=== PATIENT | female | born 1985 | race Caucasian/White ===

== ENCOUNTER 2020-07-11 17:25 | Emergency (ER) | payer OTHER, SELFPAY ==
[2020-07-11 17:28] VITALS: BP 139/86; PULSE 81; RESP 18; O2SAT 98; BMI 30.9
[2020-07-11] MEDS: ONDANSETRON 4 MG/2 ML INJ IV (17:57)
[2020-07-11 18:04] LABS: Add Manual Diff / Slide Review NO; Basophils Absolute Auto 100 /uL (0-100); Basophils Percent Auto 0.5 % (0-2); Eosinophils Absolute Auto 200 /uL (0-450); Eosinophils Percent Auto 1.4 % (2-4); Hematocrit 43.1 % (36-46); Hemoglobin 14.1 g/dL (12.0-16.0); Lymphocytes Absolute Auto 2100 /uL (1100-4500); Lymphocytes Percent Auto 14.9 % (25-40); Mean Corpuscular HGB Conc 32.8 % (30-36); Mean Corpuscular Hemoglobin 26.7 PG (26-34); Mean Corpuscular Volume 81.5 fL (80-100); Monocytes Absolute Auto 500 /uL (0-900); Monocytes Percent Auto 3.7 % (3-14); Neutrophils Absolute Auto 11100 /uL (1500-7000); Neutrophils Percent Auto 79.5 % (50-75); Platelet Count 314 X10^3/uL (150-400); Red Blood Cell Count 5.29 X10^6/uL (4.0-5.2); Red Cell Distribution Width 13.7 % (11.6-14.8); White Blood Cell Count 13.9 X10^3/uL (4.5-11.0)
--- NOTE | 2020-07-11 18:04 | ED_ITS ---
HPI - Abdominal Pain General Chief Complaint: Abdominal Pain Stated Complaint: R side pain,nausea,runs Time Seen by Provider: 07/11/20 18:00 Source: patient Mode of arrival: Ambulatory Limitations: no limitations History of Present Illness HPI narrative: 34-year-old male nonsmoker with noncontributory medical history presents at the request of her primary care provider for evaluation of gradually worsening right-sided abdominal pain. She has had nausea, vomiting and some loose stools. She states her pain is worse with motion as well as eating. She has had a poor appetite and has not had much over the course of the day. She denies any history of the same. She has had no runny nose, sore throat or cough and denies exposure to persons known to have COVID. She denies any abdominal surgeries. MD complaint: abdominal pain Onset (ago): day(s) Pain Consistency: constant Location: RUQ Severity: moderate Quality: cramping and aching Radiation: none Relieving factors: rest Exacerbating factors: eating Associated symptoms: nausea, vomiting and diarrhea Related Data Previous Rx's Medication Instructions Recorded hydrocodone-acetaminophen 1 tab PO Q4-6H PRN #10 tab 07/11/20 ondansetron 4 mg PO TID-QID PRN #10 tab 07/11/20 Allergies Allergy/AdvReac Type Severity Reaction Status Date / Time doxycycline Allergy Verified 07/11/20 17:28 sumatriptan [From Imitrex] Allergy Verified 07/11/20 17:28 Review of Systems Constitutional Constitutional: Denies chills, Denies fatigue, Denies fever(s), Denies frequent falls, Denies lethargy and Denies weakness Eyes Eyes: Denies change in vision, Denies eye discharge, Denies irritation and Denies loss of vision ENT Ears, Nose, Mouth, and Throat: Denies change in voice, Denies dizziness, Denies neck pain, Denies sore throat and Denies throat swelling Cardiovascular Cardiovascular: Denies chest pain, Denies irregular heart rhythm, Denies lightheadedness, Denies palpitations, Denies dyspnea, Denies dyspnea on exertion and Denies orthopnea Respiratory Respiratory: Denies cough, Denies dyspnea, Denies dyspnea on exertion and Denies wheezing Gastrointestinal Gastrointestinal: Reports abdominal pain, Denies change in bowel habits, Reports diarrhea, Reports nausea and Reports vomiting Musculoskeletal Musculoskeletal: Denies neck pain and Denies numbness Integumentary/Breasts Skin/Breast: Denies pruritus, Denies erythema, Denies rash and Denies wounds Neurologic Neurologic: Denies behavioral changes, Denies confusion, Denies dizziness, Denies frequent falls, Denies loss of vision, Denies numbness and Denies weakness Psychiatric Psychiatric: Denies anxiety, Denies behavioral changes, Denies confusion, Denies depression, Denies homicidal ideation and Denies suicidal ideation Endocrine Endocrine: Denies fatigue, Denies flushing and Denies palpitations Hematologic/Lymphatic Hematologic/Lymphatic: Denies easy bruising Allergic/Immunologic Allergic/Immunologic: Denies urticaria, Denies throat swelling and Denies wheezing Patient History Social History Smoking Status: Never smoker Smoking Status: Never smoker Substance Use Type: does not use Exam Narrative Exam Narrative: GENERAL: [34] year old patient appears stated age. Well- nourished, well-developed patient, in mild distress. Rubbing her right-sided abdomen HEAD: Atraumatic. Normocephalic. EYES: Pupils equal round and reactive. Extraocular motions intact. No scleral icterus. No injection or drainage. ENT: Nose without bleeding, purulent drainage. Throat without erythema, tonsillar hypertrophy or exudate. Airway patent. NECK: Trachea midline. Non tender CARDIOVASCULAR: Regular rate and rhythm without murmurs, gallops, or rubs. RESPIRATORY: Clear to auscultation. Breath sounds equal bilaterally. No wheezes, rales, or rhonchi. GASTROINTESTINAL: Abdomen soft, tender in the right upper quadrant, nondistended. No peritoneal signs. Bowel sounds present in all 4 quadrants EXTREMITIES: No edema or joint tenderness. BACK: Nontender without deformity or crepitance. No flank tenderness. NEURO: AOx3. SKIN: No rash or erythema of visible areas Initial Vital Signs Initial Vital Signs: Vital Signs Pulse Rate 81 07/11/20 17:28 Respiratory Rate 18 07/11/20 17:28 Blood Pressure 139/86 07/11/20 17:28 Pulse Oximetry 98 07/11/20 17:28 Course Orders Ordered: ED Orders 07/11/20 21:28 US abdomen limited Stat 07/11/20 22:44 CT abdomen pelvis w con Stat Discontinued Medications Hydrocodone Bitart/Acetaminophen (Hydrocodone/Acet 5/325 Prepack) 1 bottle MISC SEEINSTR ONE Stop: 07/11/20 23:41 Last Admin: 07/11/20 23:59 Dose: 1 bottle Documented by: KALIN Lactated Ringer's (Lactated Ringers) 1,000 mls @ 1,000 mls/hr IV BOLUS ONE Stop: 07/11/20 22:26 Last Infusion: 07/11/20 23:14 Dose: 0 mls/hr Documented by: Admin: 07/11/20 21:44 Dose: 1,000 mls/hr Documented by: KALIN Ondansetron HCl (Ondansetron 4 Mg/2 Ml Inj) 4 mg IV NOW ONE Stop: 07/11/20 17:35 Last Admin: 07/11/20 17:57 Dose: 4 mg Documented by: KALIN Ondansetron HCl (Ondansetron 4 Mg Odt Prepack) 1 bottle MISC SEEINSTR ONE Stop: 07/11/20 23:41 Last Admin: 07/11/20 23:59 Dose: 1 bottle Documented by: KALIN Vital Signs Vital signs: Vital Signs - 8 hr 07/12/20 00:02 Pulse Rate 68 Respiratory Rate 18 Blood Pressure 160/84 H Pulse Oximetry 98 MDM - Abdominal Pain Lab Data Result diagrams: 07/11/20 17:55 07/11/20 17:55 Labs: Lab Results 07/11/20 07/11/20 07/11/20 Range/Units 17:55 17:55 17:55 WBC 13.9 H (4.5-11.0) X10^3/uL RBC 5.29 H (4.0-5.2) X10^6/uL Hgb 14.1 (12.0-16.0) g/dL Hct 43.1 (36-46) % MCV 81.5 (80-100) fL MCH 26.7 (26-34) PG MCHC 32.8 (30-36) % RDW 13.7 (11.6-14.8) % Plt Count 314 (150-400) X10^3/uL Neut % (Auto) 79.5 H (50-75) % Lymph % (Auto) 14.9 L (25-40) % [place] % (Auto) 3.7 (3-14) % Eos % (Auto) 1.4 L (2-4) % Baso % (Auto) 0.5 (0-2) % Neut # (Auto) 52396 H (4929-4060) /uL Lymph # (Auto) 2100 (2147-9128) /uL [place] # (Auto) 500 (0-900) /uL Eos # (Auto) 200 (0-450) /uL Baso # (Auto) 100 (0-100) /uL PT 13.7 H (10.1-12.7) SECONDS INR 1.2 (0.9-1.3) APTT 34 (26.4-36.2) SECONDS Sodium 139 (137-145) mmol/L Potassium 4.2 (3.4-5.1) mmol/L Chloride 106 (98-107) mmol/L Carbon Dioxide 27 (22-32) mmol/L BUN 16 (7-17) mg/dL Creatinine 0.72 (0.52-1.04) mg/dL Estimated GFR > 60.0 (>60) mL/min BUN/Creatinine Ratio 22.2 H (6-22) Glucose 118 H (70-100) mg/dL Calcium 9.6 (8.4-10.2) mg/dL Total Bilirubin 1.0 (0.2-1.3) mg/dL AST 25 (14-36) IU/L ALT 23 (<35) IU/L Alkaline Phosphatase 77 (38-126) U/L Total Protein 8.7 H (6.3-8.2) g/dL Albumin 4.8 (3.5-5.0) g/dL Globulin 3.9 (1.7-4.1) g/dL Albumin/Globulin Ratio 1.2 (1.0-2.8) Lipase 72 (23-300) U/L Point of care testing: Point of Care Testing Test Results Negative Urine Dip Bedside Urine Glucose Negative Bedside Urine Bilirubin - Negative Bedside Urine Ketone +/- 5 Urine Specific [place] 1.030 Bedside Urine Occult Blood - Negative Bedside Urine pH 6.0 Bedside Urine Protein - Negative Bedside Urine Urobilinogen - Negative Bedside Urine Nitrite - Negative Bedside Urine Leukocytes - Negative Esterase Imaging Data US - abdomen: Radiologist's Impression: [facility] CT scan - abdomen/pelvis: Radiologist's Impression: [facility] Discharge Plan Departure Patient Disposition: Home Clinical Impression: Abdominal pain Qualifiers: Abdominal location: right upper quadrant Qualified Code(s): R10.11 - Right upper quadrant pain Instructions: DI for Abdominal Pain-Adult Activity Restrictions/Additional Instructions: *You have been diagnosed with [abdominal pain urine with very reassuring labs, u ltrasound and CT scan.] *What to do: *Take medications as directed *Follow up with your primary care provider in 2-3 days, call for an appointment. Let them know you were seen in the Emergency Department and that we ask that you be seen in follow up *Return to ER if you should have any new, worsening or concerning symptoms, such as [increased pain, fever > 101F, inability to keep food or water down or other bothersome symptoms ] 1. Drink plenty of fluids with frequent small sips. 2. For the next 24 hours a clear liquid diet is advised. After that please employ a B.R.A.T. diet which would include bananas, rice, apples, toast and other mild food items 3. Please take medications as directed. 4. Please follow-up with your doctor in the next 1-2 days. Call the office for an appointment. 5. Please return to the emergency Department for any worsening or persistent symptoms, such as increasing pain or fever. Prescriptions: New hydrocodone-acetaminophen 5-325 mg tablet 1 tab PO Q4-6H PRN (Reason: pain) Qty: 10 RF: 0 ondansetron 4 mg tablet,disintegrating 4 mg PO TID-QID PRN (Reason: nausea and vomiting) Qty: 10 RF: 0 Referrals: [facility] [Outside]
[2020-07-11 18:10] LABS: INR 1.2 (0.9-1.3); Prothrombin Time 13.7 SECONDS (10.1-12.7)
[2020-07-11 18:13] LABS: PTT Partial Thromboplastin Tim 34 SECONDS (26.4-36.2)
[2020-07-11 18:15] LABS: Alanine Aminotransferase 23 IU/L (<35); Albumin 4.8 g/dL (3.5-5.0); Albumin Globulin Ratio 1.2 (1.0-2.8); Alkaline Phosphatase 77 U/L (38-126); Aspartate Aminotransferase 25 IU/L (14-36); BUN Creatinine Ratio 22.2 (6-22); Blood Urea Nitrogen 16 mg/dL (7-17); Calcium 9.6 mg/dL (8.4-10.2); Carbon Dioxide 27 mmol/L (22-32); Chloride 106 mmol/L (98-107); Estimated Glomerular Filt Rate > 60.0 mL/min (>60); Globulin 3.9 g/dL (1.7-4.1); Glucose 118 mg/dL (70-100); HEMOLYSIS < 15 (0-50); Lipase 72 U/L (23-300); Potassium 4.2 mmol/L (3.4-5.1); Sodium 139 mmol/L (137-145); Total Protein 8.7 g/dL (6.3-8.2)
[2020-07-11 19:48] VITALS: BP 133/85; PULSE 83; RESP 14; O2SAT 98
[2020-07-11 20:58] VITALS: BMI 30.9
--- NOTE | 2020-07-11 21:28 | DI.US.S_ITS ---
PROCEDURE: US ABDOMEN LIMITED INDICATIONS: RIGHT UPPER QUADRANT PAIN TECHNIQUE: Real-time focused scanning was performed of the abdomen, with image documentation. COMPARISON: [facility], CT, CT ABDOMEN PELVIS W CON, 07/11/2020, 22:56. FINDINGS: The liver demonstrates normal size. The liver demonstrates generalized moderately increased echogenicity. This decreases ultrasound sensitivity for detection of hepatic masses. No findings of gallstones or sludge are seen. The gallbladder wall is not thickened, measuring 3 mm or less. No specific pericholecystic fluid is seen. The sonographic Crespo sign is negative. There is no biliary dilatation, the common bile duct measures at the upper limits of normal at 7 mm. The pancreas is not seen, secondary overlying bowel gas. IMPRESSION: The gallbladder demonstrates a normal sonographic appearance. The common bile duct measures at the upper limits of normal at 7 mm. Fatty liver infiltration. Note: No significant discrepancy from the preliminary report. Dictated by: David Munguia M.D. on 07/12/2020 at 8:22 Approved by: David Munguia M.D. on 07/12/2020 at 8:23
[2020-07-11] MEDS: LACTATED RINGERS 1,000 ML 1000 ML IV (21:44)
[2020-07-11 21:49] VITALS: BP 140/85; PULSE 67; RESP 16; O2SAT 100
--- NOTE | 2020-07-11 22:44 | DI.CT.S_ITS ---
PROCEDURE: CT ABDOMEN PELVIS W CON INDICATIONS: severe right sided abdominal pain TECHNIQUE: After the administration of intravenous contrast, 5 mm thick sections acquired from the diaphragm to the symphysis. 5 mm coronal and sagittal reformats were acquired. For radiation dose reduction, the following was used: automated exposure control, adjustment of mA and/or kV according to patient size. COMPARISON: [facility], , US ABDOMEN LIMITED, 07/11/2020, 21:51. FINDINGS: Image quality: Excellent. ABDOMEN: Lung bases: Lung bases are clear. Heart size is normal. A small hiatal hernia is incidentally noted. Solid organs: Liver is normal in size and enhancement. Diffuse fatty liver infiltration is noted. Gallbladder wall is not thickened. Biliary system is non dilated. Pancreas enhances normally. The spleen is mildly enlarged, measuring 14 cm AP. No adrenal nodules. Kidneys demonstrate normal size and enhancement, without hydronephrosis. Peritoneum and bowel: In this patient with this given history, scrutiny is given to the appendix. The appendix is well seen and is normal. No focal right lower quadrant inflammatory changes are seen. No dilated loops of bowel are seen. The colon is decompressed. Colonic diverticulosis is seen, without findings of active diverticulitis. No free air or significant free fluid can be seen. Nodes and vessels: No retroperitoneal or mesenteric adenopathy by size criteria. Aorta and inferior vena cava are normal in size. Miscellaneous: No ventral hernias. PELVIS: Genitourinary: Bladder wall thickness is normal. The uterus appears normal for age. No adnexal masses are seen. Miscellaneous: No inguinal hernias or adenopathy. Bones: No suspicious bony lesions. No vertebral body compression fractures. Lower lumbar spine degenerative changes are seen, including central disc protrusions at L2-L3, L4-L5, and L5-S1, with calcification along the posterior aspect of the annulus fibrosus. IMPRESSION: Normal appendix. No focal right lower quadrant inflammatory changes are seen. Lower lumbar spine degenerative changes are seen. If it would be helpful for clinical management decision making, please consider a dedicated, scheduled lumbar spine MRI for further evaluation (assuming that there is no contraindication). Incidental note is made of: Small hiatal hernia Fatty liver infiltration Mild splenomegaly Diverticulosis, without active diverticulitis Note: No significant discrepancy from the preliminary report. Dictated by: David Munguia M.D. on 07/12/2020 at 7:47 Approved by: David Munguia M.D. on 07/12/2020 at 7:52
[2020-07-11] MEDS: HYDROCODONE/ACET 5/325 PREPACK 1 BOTTLE MISC (23:59)
[2020-07-11] MEDS: ONDANSETRON 4 MG ODT PREPACK 1 BOTTLE MISC (23:59)
[2020-07-12 00:02] VITALS: BP 160/84; PULSE 68; RESP 18; O2SAT 98
== END 2020-07-12 00:06 | disposition home or self-care (01) ==
PROVIDERS: Emergency Medicine; Emergency Provider Emergency Medicine
DX: R10.11 Right upper quadrant pain (principal); R11.2 Nausea with vomiting, unspecified; R19.7 Diarrhea, unspecified
CPT/HCPCS: 74177; 76705; 80053; 81003; 81025; 83690; 85025; 85610; 85730; 96361; 96374; 99281; 99284; J2405; Q9967

== ENCOUNTER → 2020-12-19 09:18 | Outpatient (CLI) | payer OTHER, SELFPAY ==
[2020-12-19 19:45] LABS: Alanine Aminotransferase 28 IU/L (<35); Albumin 4.3 g/dL (3.5-5.0); Albumin Globulin Ratio 1.3 (1.0-2.8); Alkaline Phosphatase 74 U/L (38-126); Aspartate Aminotransferase 31 IU/L (14-36); BUN Creatinine Ratio 23.9 (6-22); Bilirubin Total 0.8 mg/dL (0.2-1.3); Blood Urea Nitrogen 17 mg/dL (7-17); Calcium 9.7 mg/dL (8.4-10.2); Carbon Dioxide 24 mmol/L (22-32); Chloride 105 mmol/L (98-107); Cholesterol 178 mg/dL (140-199); Estimated Glomerular Filt Rate > 60.0 mL/min (>60); Globulin 3.2 g/dL (1.7-4.1); Glucose 168 mg/dL (70-100); HDL Cholesterol 48 mg/dL (40-60); HEMOLYSIS < 15 (0-50); LDL Cholesterol Calculated 94 mg/dL (<100); Potassium 4.3 mmol/L (3.4-5.1); Sodium 139 mmol/L (137-145); Total Protein 7.5 g/dL (6.3-8.2); Triglycerides 180 mg/dL (35-150)
[2020-12-19 19:49] LABS: Add Manual Diff / Slide Review NO; Basophils Absolute Auto 0 /uL (0-100); Basophils Percent Auto 0.3 % (0-2); Eosinophils Absolute Auto 100 /uL (0-450); Eosinophils Percent Auto 0.8 % (2-4); Hematocrit 41.1 % (36-46); Hemoglobin 13.5 g/dL (12.0-16.0); Lymphocytes Absolute Auto 1400 /uL (1100-4500); Lymphocytes Percent Auto 20.3 % (25-40); Mean Corpuscular HGB Conc 32.9 % (30-36); Mean Corpuscular Hemoglobin 27.2 PG (26-34); Mean Corpuscular Volume 82.6 fL (80-100); Monocytes Absolute Auto 300 /uL (0-900); Monocytes Percent Auto 4.7 % (3-14); Neutrophils Absolute Auto 5100 /uL (1500-7000); Neutrophils Percent Auto 73.9 % (50-75); Platelet Count 203 X10^3/uL (150-400); Red Blood Cell Count 4.97 X10^6/uL (4.0-5.2); White Blood Cell Count 6.9 X10^3/uL (4.5-11.0)
[2020-12-19 20:10] LABS: Hemoglobin A1C% w Est Avg Glu 7.8 % (4.0-6.0)
[2020-12-21 10:10] LABS: Insulin Level Total 20.4 uIU/mL (2.6-24.9)
== END ==
PROVIDERS: PCP Family Medicine; Visit Provider Family Medicine
DX: E11.9 Type 2 diabetes mellitus without complications (principal); E66.9 Obesity, unspecified
CPT/HCPCS: 80053; 80061; 83036; 83525; 85025

== ENCOUNTER 2021-03-02 13:47 | Emergency (ER) | payer OTHER, SELFPAY ==
[2021-03-02 13:58] VITALS: BP 128/76; PULSE 79; RESP 20; TEMP 37.1; O2SAT 98
--- NOTE | 2021-03-02 14:17 | ED.GENADULT ---
HPI - General Adult General Chief complaint: Abdominal Pain Stated complaint: Severe pain in abd/stomach nausea vomiting Time Seen by Provider: 03/02/21 13:56 Source: patient Mode of arrival: Ambulatory History of Present Illness HPI narrative: Patient is a 35-year-old female here for evaluation of generalized abdominal discomfort and nausea. She has also had some diarrhea. Has had the same episodes happen 4-5 times since June when she was 1st seen for abdominal pain. During that time she had a CT scan and a right upper quadrant ultrasound shows unremarkable. She has seen her primary doctor couple times since then but has been about and other issues. She has seen microbiology technologist. A bedside ultrasound was performed during her microbiology technologist visit and she was told by the microbiology technologist provider that everything looked okay. The report for this is not available for my review. They did discuss endometriosis. The patient is not on any control. She does state that her menstrual cycles are irregular. Several times in the past when she has had pain like this she does start menstrual cycle couple days later but she has also had the pain not associated with menstrual cycles. States that last night and this morning the symptoms worsen. She did have some hydrocodone at home which she took. Related Data Previous Rx's Medication Instructions Recorded ondansetron 4 mg disintegrating 4 mg PO TID-QID PRN #10 tab 07/11/20 tablet gabapentin 100 mg capsule 100 mg PO DAILY #4 cap 12/19/20 glimepiride 2 mg tablet 2 mg PO DAILY #1 tab 12/19/20 irbesartan 150 mg tablet 150 mg PO DAILY #1 tab 12/19/20 ondansetron 4 mg disintegrating 4 mg PO Q8H PRN #1 tab 12/19/20 tablet propranolol 120 mg capsule,24 120 mg PO DAILY #1 cap 12/19/20 hr,extended release metformin 500 mg tablet 500 mg PO TID #90 tab 12/26/20 dulaglutide 1.5 mg/0.5 mL See Rx Instructions .ROUTE 02/20/21 subcutaneous pen injector .COMPLEX #2 ml (Trulicity) tramadol 50 mg tablet 50 mg PO Q6H PRN #10 tab 03/02/21 Allergies Allergy/AdvReac Type Severity Reaction Status Date / Time doxycycline Allergy Verified 02/26/21 15:55 sumatriptan [From Imitrex] Allergy Verified 09/16/21 15:55 Review of Systems Review of Systems ROS Unobtainable: All systems reviewed & are unremarkable except as noted in HPI and below Constitutional Constitutional: Denies fever(s) and Denies headache(s) ENT Ears, Nose, Mouth, and Throat: Denies headache(s) Cardiovascular Cardiovascular: Reports system reviewed and no additional complaints, except as documented Respiratory Respiratory: Reports system reviewed and no additional complaints, except as documented Gastrointestinal Gastrointestinal: Reports as per HPI and Reports system reviewed and no additional complaints, except as documented Genitourinary Genitourinary: Reports system reviewed and no additional complaints, except as documented and Reports abnormal menses Musculoskeletal Musculoskeletal: Reports system reviewed and no additional complaints, except as documented and Denies back pain Integumentary/Breasts Skin/Breast: Reports system reviewed and no additional complaints, except as documented Neurologic Neurologic: Reports system reviewed and no additional complaints, except as documented and Denies headache(s) Psychiatric Psychiatric: Reports system reviewed and no additional complaints, except as documented Endocrine Endocrine: Reports system reviewed and no additional complaints, except as documented Hematologic/Lymphatic On Anticoagulants: No Allergic/Immunologic Allergic/Immunologic: Reports system reviewed and no additional complaints, except as documented Patient History Medical History Diabetes Irregular periods/menstrual cycles Obesity Ovarian cyst Social History Smoking Status: Never smoker Smoking Status: Never smoker Substance Use Type: does not use Exam Initial Vital Signs Initial Vital Signs: Vital Signs Temperature 98.8 F 03/02/21 13:58 Pulse Rate 79 03/02/21 13:58 Respiratory Rate 20 03/02/21 13:58 Blood Pressure 128/76 03/02/21 13:58 Pulse Oximetry 98 03/02/21 13:58 Const General: cooperative, comfortable and well developed [facility] Head: normal to inspection and normocephalic Eyes General: appearance normal, both eyes and all related structures Resp Effort & Inspection: normal respiratory effort Auscultation: clear to auscultation bilaterally Cardio Rate: regular rate Rhythm: regular rhythm GI Inspection: normal to inspection and non-distended Palpation: No firm, No guarding and tender (Generalized tenderness) Back/Spine/Pelvis Back: normal to inspection Skin General: no rashes or lesions noted Neuro General: patient alert, patient awake and patient oriented x3 Cognition: normal cognition Speech: speech normal Gait: normal gait Extrem General: normal to inspection, capillary refill normal and No edema Psych Appearance: grossly normal Scores GCS [place] coma scale eye opening: Spontaneous [place] coma scale verbal response: Orientated [place] coma scale motor response: Obey commands [place] coma scale total score: 15 Course Orders Ordered: ED Orders 03/02/21 14:15 Complete Blood Count AUTO DIFF Stat Comprehensive Metabolic Panel Stat Lipase Stat Vital Signs Vital signs: Vital Signs - 8 hr 03/02/21 13:58 Temperature 98.8 F Pulse Rate 79 Respiratory Rate 20 Blood Pressure 128/76 Pulse Oximetry 98 Medical Decision Making Medical Records Medical records reviewed: Yes I reviewed the patient's medical records. Lab Data Lab results reviewed: Yes I reviewed the patient's lab results. Result diagrams: 03/02/21 14:15 03/02/21 14:15 Labs: Lab Results 03/02/21 03/02/21 Range/Units 14:15 14:15 WBC 10.8 (4.5-11.0) X10^3/uL RBC 5.07 (4.0-5.2) X10^6/uL Hgb 13.7 (12.0-16.0) g/dL Hct 41.6 (36-46) % MCV 82.1 (80-100) fL MCH 27.0 (26-34) PG MCHC 32.9 (30-36) % RDW 13.6 (11.6-14.8) % Plt Count 260 (150-400) X10^3/uL Neut % (Auto) 79.6 H (50-75) % Lymph % (Auto) 15.0 L (25-40) % [place] % (Auto) 4.6 (3-14) % Eos % (Auto) 0.6 L (2-4) % Baso % (Auto) 0.2 (0-2) % Neut # (Auto) 8600 H (5837-9063) /uL Lymph # (Auto) 1600 (0809-4847) /uL [place] # (Auto) 500 (0-900) /uL Eos # (Auto) 100 (0-450) /uL Baso # (Auto) 0 (0-100) /uL RBC Morphology Not Reportable Sodium 138 (137-145) mmol/L Potassium 4.3 (3.4-5.1) mmol/L Chloride 106 (98-107) mmol/L Carbon Dioxide 26 (22-32) mmol/L BUN 16 (7-17) mg/dL Creatinine 0.69 (0.52-1.04) mg/dL Estimated GFR > 60.0 (>60) mL/min BUN/Creatinine Ratio 23.2 H (6-22) Glucose 162 H (70-100) mg/dL Calcium 9.6 (8.4-10.2) mg/dL Total Bilirubin 1.0 (0.2-1.3) mg/dL AST 23 (14-36) IU/L ALT 19 (<35) IU/L Alkaline Phosphatase 67 (38-126) U/L Total Protein 8.3 H (6.3-8.2) g/dL Albumin 4.7 (3.5-5.0) g/dL Globulin 3.6 (1.7-4.1) g/dL Albumin/Globulin Ratio 1.3 (1.0-2.8) Lipase 64 (23-300) U/L Point of Care Testing Test Results Negative Urine Dip Bedside Urine Glucose Negative Bedside Urine Bilirubin - Negative Bedside Urine Ketone - Negative Urine Specific [place] 1.030 Bedside Urine Occult Blood - Negative Bedside Urine pH 6.0 Bedside Urine Protein - Negative Bedside Urine Urobilinogen - Negative Bedside Urine Nitrite - Negative Bedside Urine Leukocytes - Negative Esterase Point of care testing: Point of Care Testing Test Results Negative Urine Dip Bedside Urine Glucose Negative Bedside Urine Bilirubin - Negative Bedside Urine Ketone - Negative Urine Specific [place] 1.030 Bedside Urine Occult Blood - Negative Bedside Urine pH 6.0 Bedside Urine Protein - Negative Bedside Urine Urobilinogen - Negative Bedside Urine Nitrite - Negative Bedside Urine Leukocytes - Negative Esterase [facility] Narrative Medical decision making narrative: Patient is nontoxic appearing. Had a CT scan and ultrasound performed during her last visit. Her labs today are unremarkable. Urine is unremarkable. test is negative. I feel that we can hold on radiologic studies for now. She does need further workup potentially with microbiology technologist to discuss potential further evaluation of endometriosis. She is going to talk with them and her primary doctor about potentially starting on control pills. She also needs referral to see Gastroenterology to discuss further workup. She was given return precautions and follow-up instructions. She expressed understanding and agreement. Discharge Plan Departure Patient Disposition: Home Clinical Impression: Abdominal pain Instructions: DI for Abdominal Pain-Adult Activity Restrictions/Additional Instructions: I do recommend that you talk with your primary doctor to discuss further evaluation to include a referral to see Gastroenterology. Also discussed starting on a control pill. I do recommend you start on medicine called famotidine/Pepcid. You can purchase this [id number]. Return to the emergency department for any new or worsening symptoms. Prescriptions: New tramadol 50 mg tablet 50 mg PO Q6H PRN (Reason: pain) Qty: 10 RF: 0 No Action Trulicity 1.5 mg/0.5 mL pen injector See Rx Instructions .ROUTE .COMPLEX Qty: 2 RF: 0 ondansetron 4 mg tablet,disintegrating 4 mg PO TID-QID PRN (Reason: nausea and vomiting) Qty: 10 RF: 0 metformin 500 mg tablet 500 mg PO TID Qty: 90 RF: 1 propranolol 120 mg capsule,extended release 24 hr 120 mg PO DAILY Qty: 1 RF: 0 gabapentin 100 mg capsule 100 mg PO DAILY Qty: 4 RF: 0 irbesartan 150 mg tablet 150 mg PO DAILY Qty: 1 RF: 0 glimepiride 2 mg tablet 2 mg PO DAILY Qty: 1 RF: 0 ondansetron 4 mg tablet,disintegrating 4 mg PO Q8H PRN (Reason: nausea and vomiting) Qty: 1 RF: 0 Referrals: Julian Quiles MD [Primary Care Provider] -
[2021-03-02 14:23] LABS: Basophils Absolute Auto 0 /uL (0-100); Basophils Percent Auto 0.2 % (0-2); Eosinophils Absolute Auto 100 /uL (0-450); Eosinophils Percent Auto 0.6 % (2-4); Hematocrit 41.6 % (36-46); Hemoglobin 13.7 g/dL (12.0-16.0); Lymphocytes Absolute Auto 1600 /uL (1100-4500); Mean Corpuscular HGB Conc 32.9 % (30-36); Mean Corpuscular Volume 82.1 fL (80-100); Monocytes Absolute Auto 500 /uL (0-900); Monocytes Percent Auto 4.6 % (3-14); Neutrophils Absolute Auto 8600 /uL (1500-7000); Neutrophils Percent Auto 79.6 % (50-75); Platelet Count 260 X10^3/uL (150-400); Red Blood Cell Count 5.07 X10^6/uL (4.0-5.2); Red Cell Distribution Width 13.6 % (11.6-14.8); White Blood Cell Count 10.8 X10^3/uL (4.5-11.0)
[2021-03-02 14:37] LABS: Alanine Aminotransferase 19 IU/L (<35); Albumin 4.7 g/dL (3.5-5.0); Albumin Globulin Ratio 1.3 (1.0-2.8); Alkaline Phosphatase 67 U/L (38-126); Aspartate Aminotransferase 23 IU/L (14-36); BUN Creatinine Ratio 23.2 (6-22); Blood Urea Nitrogen 16 mg/dL (7-17); Calcium 9.6 mg/dL (8.4-10.2); Carbon Dioxide 26 mmol/L (22-32); Chloride 106 mmol/L (98-107); Estimated Glomerular Filt Rate > 60.0 mL/min (>60); Globulin 3.6 g/dL (1.7-4.1); Glucose 162 mg/dL (70-100); HEMOLYSIS < 15 (0-50); Lipase 64 U/L (23-300); Potassium 4.3 mmol/L (3.4-5.1); Sodium 138 mmol/L (137-145); Total Protein 8.3 g/dL (6.3-8.2)
[2021-03-02 15:28] VITALS: BP 118/73; PULSE 77; RESP 17; O2SAT 99
== END 2021-03-02 15:29 | disposition home or self-care (01) ==
PROVIDERS: Emergency Provider Emergency Medicine; PCP Family Medicine
DX: R10.84 Generalized abdominal pain (principal); R11.0 Nausea; R19.7 Diarrhea, unspecified
CPT/HCPCS: 36415; 80053; 81003; 81025; 83690; 85025; 99283

== ENCOUNTER → 2021-03-27 09:04 | Outpatient (CLI) | payer OTHER, SELFPAY ==
[2021-03-27 18:54] LABS: Add Manual Diff / Slide Review NO; Basophils Absolute Auto 0 /uL (0-100); Basophils Percent Auto 0.6 % (0-2); Eosinophils Absolute Auto 100 /uL (0-450); Eosinophils Percent Auto 2.1 % (2-4); Hemoglobin 12.7 g/dL (12.0-16.0); Lymphocytes Absolute Auto 1400 /uL (1100-4500); Lymphocytes Percent Auto 21.9 % (25-40); Mean Corpuscular HGB Conc 32.6 % (30-36); Mean Corpuscular Hemoglobin 26.7 PG (26-34); Mean Corpuscular Volume 81.9 fL (80-100); Monocytes Absolute Auto 300 /uL (0-900); Monocytes Percent Auto 5.2 % (3-14); Neutrophils Absolute Auto 4400 /uL (1500-7000); Neutrophils Percent Auto 70.2 % (50-75); Platelet Count 208 X10^3/uL (150-400); Red Blood Cell Count 4.76 X10^6/uL (4.0-5.2); Red Cell Distribution Width 13.5 % (11.6-14.8); White Blood Cell Count 6.2 X10^3/uL (4.5-11.0)
[2021-03-27 19:04] LABS: Hemoglobin A1C% w Est Avg Glu 7.1 % (4.0-6.0)
[2021-03-27 19:11] LABS: BUN Creatinine Ratio 19.8 (6-22); Blood Urea Nitrogen 19 mg/dL (7-17); Calcium 9.2 mg/dL (8.4-10.2); Carbon Dioxide 26 mmol/L (22-32); Chloride 106 mmol/L (98-107); Estimated Glomerular Filt Rate > 60.0 mL/min (>60); Glucose 180 mg/dL (70-100); HEMOLYSIS < 15 (0-50); Potassium 4.1 mmol/L (3.4-5.1); Sodium 141 mmol/L (137-145)
[2021-03-27 19:40] LABS: TSH w/ Reflex to FT4 2.56 uIU/mL (0.47-4.68)
== END ==
PROVIDERS: Family Medicine; PCP Family Medicine; Referring Provider Family Medicine; Visit Provider Family Medicine
DX: E11.9 Type 2 diabetes mellitus without complications (principal)
CPT/HCPCS: 80048; 83036; 84443; 85025

== ENCOUNTER → 2021-05-20 08:41 | Outpatient (CLI) | payer OTHER, SELFPAY ==
[2021-05-20 20:51] LABS: COVID19 - ORCAS (NP or Nasal) Negative (Negative)
== END ==
PROVIDERS: PCP Family Medicine; Visit Provider Physician Assistant
DX: Z20.822 Contact with and (suspected) exposure to COVID-19 (principal)
CPT/HCPCS: U0003

== ENCOUNTER → 2021-12-07 10:30 | Outpatient (CLI) | payer SELFPAY ==
[2021-12-07 19:23] LABS: Alanine Aminotransferase 32 IU/L (<35); Albumin 4.6 g/dL (3.5-5.0); Albumin Globulin Ratio 1.5 (1.0-2.8); Alkaline Phosphatase 67 U/L (38-126); Aspartate Aminotransferase 32 IU/L (14-36); BUN Creatinine Ratio 22.9 (6-22); Blood Urea Nitrogen 16 mg/dL (7-17); Calcium 9.5 mg/dL (8.4-10.2); Carbon Dioxide 27 mmol/L (22-32); Chloride 101 mmol/L (98-107); Estimated Glomerular Filt Rate > 60 mL/min (>60); Glucose 252 mg/dL (70-100); HEMOLYSIS < 15 (0-50); Potassium 4.7 mmol/L (3.4-5.1); Sodium 136 mmol/L (137-145); Total Protein 7.6 g/dL (6.3-8.2)
[2021-12-07 19:43] LABS: Hemoglobin A1C% w Est Avg Glu 9.4 % (4.0-6.0)
== END ==
PROVIDERS: PCP Family Medicine; Visit Provider Family Medicine
DX: E11.9 Type 2 diabetes mellitus without complications (principal)
CPT/HCPCS: 80053; 83036

== ENCOUNTER 2022-03-15 09:01 | Emergency (ER) | payer SELFPAY ==
[2022-03-15] VITALS (17 sets, daily range): BP systolic 118–170; BP diastolic 67–107; PULSE 64–80; RESP 18; TEMP 36.5–37; O2SAT 96–98; BMI 33.4
--- NOTE | 2022-03-15 09:22 | ED_ITS ---
HPI - General Adult General Chief complaint: Abdominal Pain Stated complaint: abdominal & back pain Time Seen by Provider: 03/15/22 09:06 Source: patient Mode of arrival: Ambulatory History of Present Illness HPI narrative: 36-year-old woman with history of menometrorrhagia who presents with a month of increasing abdominal pain that she had assumed was related to menstrual cycles and cramping. She notes that she did not have a menstrual cycle in February but she is not sexually active. With pain is on the right side mostly right up per quadrant and epigastric but some into her flank. She had not related pain to had activities, eating or fasting however she when out for dinner last night had a Miguel sandwich in pain is been significantly worse with significant heartburn. No vomiting or diarrhea. No headaches, chest pain, palpitations, dyspnea. She does have an appointment to discuss this with her primary care physician but pain is escalated to the point that she came into the emergency department for further evaluation at this time. Related Data Previous Rx's Medication Instructions Recorded ondansetron 4 mg disintegrating 4 mg PO Q8H PRN nausea and 03/04/21 tablet vomiting #10 tabs propranolol 120 mg capsule,24 120 mg PO DAILY #90 caps 09/29/21 hr,extended release ergotamine tartrate 2 mg 2 mg sublingual Q30M PRN migraine 12/07/21 sublingual tablet headache #30 tabs glimepiride 4 mg tablet 4 mg PO DAILY #180 tabs 12/07/21 irbesartan 150 mg tablet 150 mg PO DAILY #90 tabs 12/07/21 metformin 1,000 mg tablet See Rx Instructions .Route 12/07/21 .COMPLEX #180 tabs sertraline 50 mg tablet 50 mg PO DAILY #90 tabs 12/07/21 nirmatrelvir 300 mg (150 mg See Rx Instructions PO .COMPLEX 12/18/21 x2)-ritonavir 100 mg tablet,dose #30 tabs pack(EUA) (Paxlovid) gabapentin 100 mg capsule See Rx Instructions .Route 03/05/22 .COMPLEX #120 caps tramadol 50 mg tablet 50 mg PO Q6H PRN pain #10 tabs 03/08/22 oxycodone-acetaminophen 5 mg-325 1 tab PO Q6H PRN pain #10 tabs 03/15/22 mg tablet Allergies Allergy/AdvReac Type Severity Reaction Status Date / Time doxycycline Allergy Verified 03/15/22 09:42 sumatriptan [From Imitrex] Allergy Verified 03/15/22 09:42 LISINOPRIL Allergy Mild BODYACHES Uncoded 03/15/22 11:41 AND SWEATY PALMS Review of Systems Review of Systems Narrative: Remainder of complete review of systems is otherwise unremarkable except for that included in the HPI. Patient History Medical History Diabetes Hypertension Irregular periods/menstrual cycles Migraine Neuropathy Obesity Ovarian cyst Social History Smoking Status: Former smoker Smoking Status: Former smoker Substance Use Type: does not use Exam Initial Vital Signs Initial Vital Signs: Vital Signs Temperature 97.7 F 03/15/22 09:09 Pulse Rate 79 03/15/22 09:09 Respiratory Rate 18 03/15/22 09:09 Blood Pressure 135/88 03/15/22 09:09 Pulse Oximetry 97 03/15/22 09:09 Oxygen Delivery Method 03/15/22 09:09 General: Healthy appearing, in mild distress. Able to give a complete and coherent history. Well-nourished well-developed HEENT: Moist mucous membranes, normal sclera with reactive pupils, Neck: supple Respiratory: Lungs are clear to auscultation, no wheezing no rales no rhonchi. Full and symmetrical air movement Cardiac: Regular rate and rhythm no murmurs no bruits Abdomen: Soft, very tender in the epigastrium and right upper quadrant without rebound or guarding, hypoactive bowel tones, mild right flank pain that seems to be more referred pain from the right upper quadrant Skin: Warm and dry, no rashes Neurologic: Grossly neurologically intact with no obvious asymmetries or abnormalities Extremities: No trauma, well perfused Psych: Cooperative, appropriate insight and affect Course Orders Ordered: ED Orders 03/15/22 09:20 Complete Blood Count AUTO DIFF Stat Comprehensive Metabolic Panel Stat Lipase Stat 03/15/22 09:38 US abdomen limited Stat 03/15/22 12:25 CT abdomen pelvis w con Stat Vital Signs Vital signs: Vital Signs - 8 hr 03/15/22 09:09 03/15/22 09:28 03/15/22 09:28 Temperature 97.7 F Pulse Rate 79 80 Respiratory Rate 18 Blood Pressure 135/88 127/88 Pulse Oximetry 97 96 Oxygen Delivery Method Room Air 03/15/22 09:30 03/15/22 09:30 03/15/22 10:00 Temperature Pulse Rate 77 80 Respiratory Rate Blood Pressure 130/91 H Pulse Oximetry 96 97 Oxygen Delivery Method 03/15/22 10:01 03/15/22 10:01 03/15/22 10:30 Temperature Pulse Rate 75 Respiratory Rate Blood Pressure 127/84 130/68 Pulse Oximetry 97 Oxygen Delivery Method 03/15/22 10:30 03/15/22 11:00 03/15/22 11:00 Temperature Pulse Rate 66 69 Respiratory Rate Blood Pressure 124/70 Pulse Oximetry 96 97 Oxygen Delivery Method 03/15/22 11:30 03/15/22 11:31 03/15/22 11:31 Temperature Pulse Rate 73 68 Respiratory Rate Blood Pressure 124/67 Pulse Oximetry 97 96 Oxygen Delivery Method 03/15/22 12:00 03/15/22 12:00 Temperature Pulse Rate 72 Respiratory Rate Blood Pressure 118/67 Pulse Oximetry 96 Oxygen Delivery Method Medical Decision Making Lab Data Result diagrams: 03/15/22 09:20 03/15/22 09:20 Labs: Lab Results 03/15/22 03/15/22 Range/Units 09:20 09:20 WBC 7.4 (4.5-11.0) X10^3/uL RBC 4.96 (4.0-5.2) X10^6/uL Hgb 13.4 (12.0-16.0) g/dL Hct 40.4 (36-46) % MCV 81.5 (80-100) fL MCH 27.1 (26-34) PG MCHC 33.3 (30-36) % RDW 13.9 (11.6-14.8) % Plt Count 214 (150-400) X10^3/uL Neut % (Auto) 62.9 (50-75) % Lymph % (Auto) 30.4 (25-40) % [place] % (Auto) 4.9 (3-14) % Eos % (Auto) 1.3 L (2-4) % Baso % (Auto) 0.5 (0-2) % Neut # (Auto) 4600 (9468-3164) /uL Lymph # (Auto) 2200 (8314-7806) /uL [place] # (Auto) 400 (0-900) /uL Eos # (Auto) 100 (0-450) /uL Baso # (Auto) 0 (0-100) /uL Sodium 138 (137-145) mmol/L Potassium 3.8 (3.4-5.1) mmol/L Chloride 100 (98-107) mmol/L Carbon Dioxide 28 (22-32) mmol/L BUN 12 (7-17) mg/dL Creatinine 0.64 (0.52-1.04) mg/dL Estimated GFR > 60 (>60) mL/min BUN/Creatinine Ratio 18.8 (6-22) Glucose 232 H (70-100) mg/dL Calcium 9.5 (8.4-10.2) mg/dL Total Bilirubin 0.7 (0.2-1.3) mg/dL AST 51 H (14-36) IU/L ALT 57 H (<35) IU/L Alkaline Phosphatase 66 (38-126) U/L Total Protein 8.3 H (6.3-8.2) g/dL Albumin 4.5 (3.5-5.0) g/dL Globulin 3.8 (1.7-4.1) g/dL Albumin/Globulin Ratio 1.2 (1.0-2.8) Lipase 75 (23-300) U/L Point of Care Testing Test Results Negative Urine Dip Bedside Urine Glucose Negative Bedside Urine Bilirubin - Negative Bedside Urine Ketone - Negative Urine Specific [place] 1.030 Bedside Urine Occult Blood - Negative Bedside Urine pH 5.0 Bedside Urine Protein - Negative Bedside Urine Urobilinogen - Negative Bedside Urine Nitrite - Negative Bedside Urine Leukocytes - Negative Esterase Point of care testing: Point of Care Testing Test Results Negative Urine Dip Bedside Urine Glucose Negative Bedside Urine Bilirubin - Negative Bedside Urine Ketone - Negative Urine Specific [place] 1.030 Bedside Urine Occult Blood - Negative Bedside Urine pH 5.0 Bedside Urine Protein - Negative Bedside Urine Urobilinogen - Negative Bedside Urine Nitrite - Negative Bedside Urine Leukocytes - Negative Esterase Imaging Data us abd: Radiologist's Impression: FINDINGS: ? Liver:? Hepatomegaly 20.2 cm. There is increased echogenicity reflecting hepatic fatty infiltration with focal fatty sparing adjacent to the gallbladder.? Main portal vein vascularity is appropriately hepatopetal. ? Gallbladder:? Sonolucent without cholelithiasis.? No gallbladder wall thickening . No pericholecystic fluid or Crespo's sign. ? Common Bile Duct:? 3.8 mm. ? Pancreas:? Unremarkable as visualized ? ? ? IMPRESSION: ? 1. Hepatic fatty infiltration.? Hepatomegaly. ? Approved by: Hussein Burger M.D. on 03/15/2022 at 9:50? CT scan - abdomen/pelvis: Radiologist's Impression: FINDINGS:? Image quality:? Excellent.? ? Lung bases:? Unremarkable.? ? Heart:? No significant findings. ? ? ABDOMEN: Liver:? Enlarged, fatty liver is seen.? No focal liver lesion can be seen. Gallbladder:? Unremarkable.? ? Biliary ducts:? Unremarkable.? ? Pancreas:? Unremarkable.? ? Spleen:? The spleen is enlarged, measuring 14 cm AP.? No focal splenic lesion can be seen. Adrenal Glands:? Minimal nodularity can be is seen of the left adrenal gland.? The right adrenal gland is unremarkable. Kidneys and Ureters:? Unremarkable.? ? ? Stomach and Bowel:? [id number] wall thickening can be seen involving the ascending colon, with minimal surrounding inflammatory change.? Mild distal colonic diverticulosis is seen, without findings of active diverticulitis. No dilated loops of small bowel are seen. Stomach is relatively decompressed. Peritoneum:? No peritoneal abscess is seen.? No abnormal intraperitoneal fluid.? No free air.? ? Ventral Wall: ? No hernia.? Abdominal Nodes:? No retroperitoneal or mesenteric adenopathy by size criteria.? Vessels:? Aorta and inferior vena cava are normal in size.? ? PELVIS: Pelvic Organs: The uterus appears normal for age.? No adnexal masses are seen.? Bladder:? Unremarkable.? ? Pelvic Nodes: No enlarged lymph nodes.? Miscellaneous: No inguinal hernias are seen. ? ? ? Bones:? Lumbar spine degenerative changes are again seen. ? ? IMPRESSION:? ? Apparent proximal colitis.? Please correlate with infectious and inflammatory causes of colitis. ? No findings of perforation or abscess can be seen. ? Normal appendix.? Incidental note is made of: Enlarged, fatty liver. Splenomegaly Lumbar spine degenerative change Diverticulosis, without active diverticulitis ? Dictated by: David Munguia M.D. on 03/15/2022 at 12:27? MDM Narrative Medical decision making narrative: 36-year-old woman with abdominal pain for the last month. No significant fevers or diarrhea. Workup is reassuring at this time with no evidence of acute infection, pyelonephritis, appendicitis. CT scan does suggest a right-sided colitis without evidence of constipation, bowel obstruction gallbladder abnormalities or alternate explanation for her pain. She does have a follow-up appointment with her primary care doctor later this week. Reviewed findings and concerns. At this point I think it is okay to simply cover upper pain for a day or 2 as we know it isn't something that needs hospitalization or surgical intervention. Give her a small prescription for Percocet along with instructions on avoiding constipation. Questions are answered and at this point she is safe for home discharge Discharge Plan Departure Patient Disposition: Home Clinical Impression: Colitis Abdominal pain Qualifiers: Abdominal location: generalized Qualified Code(s): R10.84 - Generalized abdominal pain Instructions: DI for Colitis Activity Restrictions/Additional Instructions: Thank you for coming in today I am sorry that you are suffering with this pain. Fortunately I did not find any life-threatening explanations for your pain. Specifically there is no evidence of severe infection, appendicitis, ovarian issues or kidney infection. No evidence of kidney stones, bowel blockage or tumors. The CT scan does suggest colitis which simply means that you have the right side of your colon is slightly inflamed. Typically this is self-limited and will improve. There is no specific treatment at this time. Because we have ruled out all of the life-threatening things that could be causing her pain, I believe it is safe to simply cover up your pain for a day or two. Using 400 mg of ibuprofen (2 [id number] pills) and 1 Tylenol every 6 hours can be very helpful in controlling pain. To this you can try adding 1 of the tramadol you have available at home. You could also combined 1 Percocet and 400 mg of ibuprofen for more severe pain. Percocet is a narcotic and can cause constipation which can make your abdominal pain worse so make sure that your drinking plenty of fluids and using a stool softener if you choose to take this. Prescription for Percocet was electronically transmitted to [place] [facility], the pharmacy that is in the waiting area for the clinics here in the hospital. Please follow-up with your primary care doctor if this pain persists If you find that you are getting worse or develop any new symptoms, please feel free to return to the emergency department for further evaluation. Prescriptions: New oxycodone-acetaminophen 5-325 mg tablet 1 tab PO Q6H PRN (Reason: pain) Qty: 10 0RF No Action ondansetron 4 mg tablet,disintegrating 4 mg PO Q8H PRN (Reason: nausea and vomiting) Qty: 10 1RF propranolol 120 mg capsule,extended release 24 hr 120 mg PO DAILY Qty: 90 1RF Paxlovid (EUA) 150 mg x 2- 100 mg tablet See Rx Instructions PO .COMPLEX Qty: 30 0RF Rx Instructions: take TWO 150 mg tablets of nirmatrelvir with ONE 100 mg tablet of ritonavir twice daily for 5 days PO gabapentin 100 mg capsule See Rx Instructions .ROUTE .COMPLEX Qty: 120 1RF Rx Instructions: 1 capsule twice daily, and 2 at bedtime tramadol 50 mg tablet 50 mg PO Q6H PRN (Reason: pain) Qty: 10 0RF metformin 1,000 mg tablet See Rx Instructions .ROUTE .COMPLEX Qty: 180 3RF Dose Instruction: TAKE ONE TABLET BY MOUTH THREE TIMES A DAY WITH MEALS Rx Instructions: TAKE ONE TABLET BY MOUTH two TIMES A DAY WITH MEALS glimepiride 4 mg tablet 4 mg PO DAILY Qty: 180 3RF ergotamine tartrate 2 mg tablet, sublingual 2 mg sublingual Q30M PRN (Reason: migraine headache) Qty: 30 1RF Rx Instructions: do not exceed 6 mg per day or 10 mg per wk irbesartan 150 mg tablet 150 mg PO DAILY Qty: 90 3RF sertraline 50 mg tablet 50 mg PO DAILY Qty: 90 3RF Referrals: Pj Gatica, [Primary Care Provider] -
[2022-03-15 09:34] LABS: Add Manual Diff / Slide Review NO; Basophils Absolute Auto 0 /uL (0-100); Basophils Percent Auto 0.5 % (0-2); Eosinophils Absolute Auto 100 /uL (0-450); Eosinophils Percent Auto 1.3 % (2-4); Hematocrit 40.4 % (36-46); Hemoglobin 13.4 g/dL (12.0-16.0); Lymphocytes Absolute Auto 2200 /uL (1100-4500); Lymphocytes Percent Auto 30.4 % (25-40); Mean Corpuscular HGB Conc 33.3 % (30-36); Mean Corpuscular Hemoglobin 27.1 PG (26-34); Mean Corpuscular Volume 81.5 fL (80-100); Monocytes Absolute Auto 400 /uL (0-900); Monocytes Percent Auto 4.9 % (3-14); Neutrophils Absolute Auto 4600 /uL (1500-7000); Neutrophils Percent Auto 62.9 % (50-75); Platelet Count 214 X10^3/uL (150-400); Red Blood Cell Count 4.96 X10^6/uL (4.0-5.2); Red Cell Distribution Width 13.9 % (11.6-14.8); White Blood Cell Count 7.4 X10^3/uL (4.5-11.0)
--- NOTE | 2022-03-15 09:38 | DI.US.S_ITS ---
PROCEDURE: US ABDOMEN LIMITED INDICATIONS: RUQ pain TECHNIQUE: Real-time scanning was performed of the abdominal and retroperitoneal organs, with image documentation. COMPARISON: [facility], , US ABDOMEN LIMITED, 07/11/2020, 21:51. FINDINGS: Liver: Hepatomegaly 20.2 cm. There is increased echogenicity reflecting hepatic fatty infiltration with focal fatty sparing adjacent to the gallbladder. Main portal vein vascularity is appropriately hepatopetal. Gallbladder: Sonolucent without cholelithiasis. No gallbladder wall thickening. No pericholecystic fluid or Crespo's sign. Common Bile Duct: 3.8 mm. Pancreas: Unremarkable as visualized IMPRESSION: 1. Hepatic fatty infiltration. Hepatomegaly. Approved by: Hussein Burger M.D. on 03/15/2022 at 9:50
[2022-03-15 09:47] LABS: Alanine Aminotransferase 57 IU/L (<35); Albumin 4.5 g/dL (3.5-5.0); Albumin Globulin Ratio 1.2 (1.0-2.8); Alkaline Phosphatase 66 U/L (38-126); Aspartate Aminotransferase 51 IU/L (14-36); BUN Creatinine Ratio 18.8 (6-22); Bilirubin Total 0.7 mg/dL (0.2-1.3); Blood Urea Nitrogen 12 mg/dL (7-17); Calcium 9.5 mg/dL (8.4-10.2); Carbon Dioxide 28 mmol/L (22-32); Chloride 100 mmol/L (98-107); Estimated Glomerular Filt Rate > 60 mL/min (>60); Globulin 3.8 g/dL (1.7-4.1); Glucose 232 mg/dL (70-100); HEMOLYSIS < 15 (0-50); Lipase 75 U/L (23-300); Potassium 3.8 mmol/L (3.4-5.1); Sodium 138 mmol/L (137-145); Total Protein 8.3 g/dL (6.3-8.2)
--- NOTE | 2022-03-15 12:25 | DI.CT.S_ITS ---
PROCEDURE: CT ABDOMEN PELVIS W CON INDICATIONS: abdominal pain TECHNIQUE: After the administration of IV contrast, axial sections were acquired from the lung bases to the pubic symphysis. Coronal and sagittal reformats were performed. For radiation dose reduction, the following was used: automated exposure control, adjustment of mA and/or kV according to patient size. COMPARISON: [facility], US, US ABDOMEN LIMITED, 03/15/2022, 10:02. [facility], CT, CT ABDOMEN PELVIS W CON, 07/11/2020, 22:56. FINDINGS: Image quality: Excellent. Lung bases: Unremarkable. Heart: No significant findings. ABDOMEN: Liver: Enlarged, fatty liver is seen. No focal liver lesion can be seen. Gallbladder: Unremarkable. Biliary ducts: Unremarkable. Pancreas: Unremarkable. Spleen: The spleen is enlarged, measuring 14 cm AP. No focal splenic lesion can be seen. Adrenal Glands: Minimal nodularity can be is seen of the left adrenal gland. The right adrenal gland is unremarkable. Kidneys and Ureters: Unremarkable. Stomach and Bowel: [id number] wall thickening can be seen involving the ascending colon, with minimal surrounding inflammatory change. Mild distal colonic diverticulosis is seen, without findings of active diverticulitis. No dilated loops of small bowel are seen. Stomach is relatively decompressed. Peritoneum: No peritoneal abscess is seen. No abnormal intraperitoneal fluid. No free air. Ventral Wall: No hernia. Abdominal Nodes: No retroperitoneal or mesenteric adenopathy by size criteria. Vessels: Aorta and inferior vena cava are normal in size. PELVIS: Pelvic Organs: The uterus appears normal for age. No adnexal masses are seen. Bladder: Unremarkable. Pelvic Nodes: No enlarged lymph nodes. Miscellaneous: No inguinal hernias are seen. Bones: Lumbar spine degenerative changes are again seen. IMPRESSION: Apparent proximal colitis. Please correlate with infectious and inflammatory causes of colitis. No findings of perforation or abscess can be seen. Normal appendix. Incidental note is made of: Enlarged, fatty liver. Splenomegaly Lumbar spine degenerative change Diverticulosis, without active diverticulitis Dictated by: David Munguia M.D. on 03/15/2022 at 12:27 Approved by: David Munguia M.D. on 03/15/2022 at 12:31
[2022-03-15] MEDS: KETOROLAC 30 MG/ML VIAL 15 MG IV (15:20)
== END 2022-03-15 15:26 | disposition home or self-care (01) ==
PROVIDERS: Emergency Provider Emergency Medicine; PCP Family Medicine
DX: K52.9 Noninfective gastroenteritis and colitis, unspecified (principal); R10.84 Generalized abdominal pain
CPT/HCPCS: 36415; 74177; 76705; 80053; 81003; 81025; 83690; 85025; 96374; 99284; J1885

== ENCOUNTER → 2022-03-16 10:11 | Outpatient (CLI) | payer SELFPAY ==
[2022-03-16 20:33] LABS: Creatinine Urine Random 345.3 mg/dL
[2022-03-16 20:37] LABS: Microalbumi Creatinin Ratio Ur 14.4 ug/mg CR (<30)
[2022-03-16 21:03] LABS: Hemoglobin A1C% w Est Avg Glu 8.5 % (4.0-6.0)
[2022-03-16 21:07] LABS: Alanine Aminotransferase 51 IU/L (<35); Albumin 4.1 g/dL (3.5-5.0); Albumin Globulin Ratio 1.3 (1.0-2.8); Alkaline Phosphatase 71 U/L (38-126); Aspartate Aminotransferase 45 IU/L (14-36); BUN Creatinine Ratio 25.8 (6-22); Bilirubin Total 0.6 mg/dL (0.2-1.3); Blood Urea Nitrogen 16 mg/dL (7-17); Calcium 8.9 mg/dL (8.4-10.2); Carbon Dioxide 25 mmol/L (22-32); Chloride 104 mmol/L (98-107); Estimated Glomerular Filt Rate > 60 mL/min (>60); Globulin 3.2 g/dL (1.7-4.1); Glucose 223 mg/dL (70-100); HEMOLYSIS < 15 (0-50); Potassium 4.2 mmol/L (3.4-5.1); Sodium 139 mmol/L (137-145); Total Protein 7.3 g/dL (6.3-8.2)
== END ==
PROVIDERS: PCP Family Medicine; Visit Provider Family Medicine
DX: E11.9 Type 2 diabetes mellitus without complications (principal)
CPT/HCPCS: 80053; 82043; 82570; 83036

== ENCOUNTER → 2022-06-15 10:32 | Outpatient (CLI) | payer SELFPAY ==
[2022-06-15 19:36] LABS: Alanine Aminotransferase 49 IU/L (<35); Albumin 4.3 g/dL (3.5-5.0); Albumin Globulin Ratio 1.2 (1.0-2.8); Alkaline Phosphatase 83 U/L (38-126); Aspartate Aminotransferase 49 IU/L (14-36); BUN Creatinine Ratio 18.2 (6-22); Bilirubin Total 0.7 mg/dL (0.2-1.3); Blood Urea Nitrogen 12 mg/dL (7-17); Calcium 9.4 mg/dL (8.4-10.2); Carbon Dioxide 24 mmol/L (22-32); Chloride 101 mmol/L (98-107); Estimated Glomerular Filt Rate > 60 mL/min (>60); Globulin 3.5 g/dL (1.7-4.1); Glucose 288 mg/dL (70-100); HEMOLYSIS < 15 (0-50); Potassium 4.4 mmol/L (3.4-5.1); Sodium 139 mmol/L (137-145); Total Protein 7.8 g/dL (6.3-8.2)
[2022-06-15 19:39] LABS: Hemoglobin A1C% w Est Avg Glu 10.2 % (4.0-6.0)
== END ==
PROVIDERS: PCP Family Medicine; Visit Provider Family Medicine
DX: E11.9 Type 2 diabetes mellitus without complications (principal)
CPT/HCPCS: 80053; 83036

== ENCOUNTER → 2023-08-10 10:10 | Outpatient (CLI) | payer SELFPAY ==
[2023-08-10 19:13] LABS: Alanine Aminotransferase 37 IU/L (<35); Albumin 4.2 g/dL (3.5-5.0); Albumin Globulin Ratio 1.2 (1.0-2.8); Alkaline Phosphatase 88 U/L (38-126); Aspartate Aminotransferase 41 IU/L (14-36); BUN Creatinine Ratio 28.8 (6-22); Blood Urea Nitrogen 17 mg/dL (7-17); Calcium 9.9 mg/dL (8.4-10.2); Carbon Dioxide 38 mmol/L (22-32); Chloride 102 mmol/L (98-107); Cholesterol 171 mg/dL (140-199); Estimated Glomerular Filt Rate > 60 mL/min (>60); Globulin 3.4 g/dL (1.7-4.1); Glucose 301 mg/dL (70-100); HDL Cholesterol 38 mg/dL (40-60); HEMOLYSIS < 15 (0-50); LDL Cholesterol Calculated 83 mg/dL (<100); Potassium 4.3 mmol/L (3.4-5.1); Sodium 138 mmol/L (137-145); Total Protein 7.6 g/dL (6.3-8.2); Triglycerides 251 mg/dL (35-150)
[2023-08-10 19:36] LABS: Hemoglobin A1C% w Est Avg Glu 9.9 % (4.0-6.0)
[2023-08-10 19:42] LABS: TSH w/ Reflex to FT4 1.56 uIU/mL (0.47-4.68)
== END ==
PROVIDERS: PCP Family Medicine; Visit Provider Family Medicine
DX: E11.9 Type 2 diabetes mellitus without complications (principal); I10 Essential (primary) hypertension; G62.9 Polyneuropathy, unspecified; Z79.899 Other long term (current) drug therapy
CPT/HCPCS: 80053; 80061; 83036; 84443

== ENCOUNTER → 2023-10-25 13:17 | Outpatient (CLI) | payer SELFPAY | PROVIDERS: PCP Family Medicine; Visit Provider Physician Assistant | DX: J02.9 Acute pharyngitis, unspecified (principal) | CPT/HCPCS: 87070 ==

== ENCOUNTER → 2024-04-05 10:16 | Outpatient (CLI) | payer SELFPAY ==
[2024-04-05 20:46] LABS: Influenza A - CEPHEID Flu A NEGATIVE (NEGATIVE); Influenza B - CEPHEID Flu B NEGATIVE (NEGATIVE); Respiratory Syncytial Virus Negative (Negative)
[2024-04-05 21:00] LABS: COVID-19 CEPHEID 4-PLEX PCR Negative (Negative)
== END ==
PROVIDERS: PCP Family Medicine; Visit Provider Physician Assistant Medical
DX: J20.9 Acute bronchitis, unspecified (principal)
CPT/HCPCS: 0241U

== ENCOUNTER → 2024-08-03 12:06 | Outpatient (CLI) | payer BC, SELFPAY ==
[2024-08-03 13:11] LABS: Add Manual Diff / Slide Review NO; Basophils Absolute Auto 0 /uL (0-100); Basophils Percent Auto 0.4 % (0-2); Eosinophils Absolute Auto 100 /uL (0-450); Hematocrit 40.1 % (36-46); Hemoglobin 13.2 g/dL (12.0-16.0); Lymphocytes Absolute Auto 1700 /uL (1100-4500); Lymphocytes Percent Auto 25.3 % (25-40); Mean Corpuscular Hemoglobin 25.8 PG (26-34); Mean Corpuscular Volume 78.1 fL (80-100); Monocytes Absolute Auto 300 /uL (0-900); Monocytes Percent Auto 4.5 % (3-14); Neutrophils Absolute Auto 4500 /uL (1500-7000); Neutrophils Percent Auto 68.8 % (50-75); Platelet Count 200 X10^3/uL (150-400); Red Blood Cell Count 5.13 X10^6/uL (4.0-5.2); Red Cell Distribution Width 14.2 % (11.6-14.8); White Blood Cell Count 6.6 X10^3/uL (4.5-11.0)
[2024-08-03 13:33] LABS: Alanine Aminotransferase 38 IU/L (<35); Albumin 4.8 g/dL (3.5-5.0); Albumin Globulin Ratio 1.5 (1.0-2.8); Alkaline Phosphatase 78 U/L (38-126); Aspartate Aminotransferase 39 IU/L (14-36); BUN Creatinine Ratio 22.4 (6-22); Bilirubin Total 0.9 mg/dL (0.2-1.3); Blood Urea Nitrogen 15 mg/dL (7-17); Calcium 9.8 mg/dL (8.4-10.2); Carbon Dioxide 26 mmol/L (22-32); Chloride 101 mmol/L (98-107); Cholesterol 185 mg/dL (140-199); Estimated Glomerular Filt Rate > 60 mL/min (>60); Globulin 3.1 g/dL (1.7-4.1); Glucose 236 mg/dL (70-100); HDL Cholesterol 38 mg/dL (40-60); HEMOLYSIS < 15 (0-50); LDL Cholesterol Calculated 111 mg/dL (<100); Potassium 4.3 mmol/L (3.4-5.1); Sodium 140 mmol/L (137-145); Total Protein 7.9 g/dL (6.3-8.2); Triglycerides 180 mg/dL (35-150)
[2024-08-03 14:02] LABS: TSH w/ Reflex to FT4 1.95 uIU/mL (0.47-4.68)
[2024-08-03 17:42] LABS: Hemoglobin A1C% w Est Avg Glu 8.7 % (4.0-6.0)
== END ==
PROVIDERS: PCP Family Medicine; Referring Provider Family Medicine; Visit Provider Family Medicine
DX: Z00.00 Encounter for general adult medical examination without abnormal findings (principal); I10 Essential (primary) hypertension; E11.9 Type 2 diabetes mellitus without complications
CPT/HCPCS: 36415; 80053; 80061; 83036; 84443; 85025

== ENCOUNTER → 2024-12-06 16:46 | Outpatient (CLI) | payer BC, SELFPAY ==
[2024-12-06 17:56] LABS: Influenza A - CEPHEID Flu A NEGATIVE (NEGATIVE); Influenza B - CEPHEID Flu B NEGATIVE (NEGATIVE); Respiratory Syncytial Virus Negative (Negative)
[2024-12-06 18:06] LABS: COVID-19 CEPHEID 4-PLEX PCR Negative (Negative)
== END ==
PROVIDERS: PCP Family Medicine; Visit Provider Family Medicine
DX: J20.9 Acute bronchitis, unspecified (principal); J45.21 Mild intermittent asthma with (acute) exacerbation
CPT/HCPCS: 0241U

== ENCOUNTER → 2025-02-14 13:25 | Outpatient (CLI) | payer BC, SELFPAY ==
[2025-02-14 13:58] LABS: Hematocrit 41.0 % (36-46); Hemoglobin 13.5 g/dL (12.0-16.0); Mean Corpuscular HGB Conc 32.8 % (30-36); Mean Corpuscular Hemoglobin 25.8 PG (26-34); Mean Corpuscular Volume 78.6 fL (80-100); Platelet Count 221 X10^3/uL (150-400)
[2025-02-14 13:59] LABS: Add Manual Diff / Slide Review NO; Lymphocytes Absolute Auto 1700 /uL (1100-4500)
[2025-02-14 14:09] LABS: Hemoglobin A1C% w Est Avg Glu 8.1 % (4.0-6.0)
[2025-02-14 14:32] LABS: Alanine Aminotransferase 21 IU/L (<35); Albumin 4.6 g/dL (3.5-5.0); Albumin Globulin Ratio 1.4 (1.0-2.8); Alkaline Phosphatase 73 U/L (38-126); Blood Urea Nitrogen 14 mg/dL (7-17); Calcium 9.8 mg/dL (8.4-10.2); Carbon Dioxide 25 mmol/L (22-32); Chloride 105 mmol/L (98-107); Cholesterol 187 mg/dL (140-199); Estimated Glomerular Filt Rate > 60 mL/min (>60); Globulin 3.2 g/dL (1.7-4.1); Glucose 130 mg/dL (70-99); HDL Cholesterol 50 mg/dL (40-60); HEMOLYSIS < 15 (0-50); Potassium 4.3 mmol/L (3.4-5.1); Sodium 140 mmol/L (137-145); Total Protein 7.8 g/dL (6.3-8.2); Triglycerides 159 mg/dL (35-150)
[2025-02-14 14:58] LABS: TSH w/ Reflex to FT4 1.59 uIU/mL (0.47-4.68)
== END ==
PROVIDERS: PCP Family Medicine; Referring Provider Family Medicine; Visit Provider Family Medicine
DX: I10 Essential (primary) hypertension (principal); E11.9 Type 2 diabetes mellitus without complications; G56.00 Carpal tunnel syndrome, unspecified upper limb; J45.21 Mild intermittent asthma with (acute) exacerbation; J20.9 Acute bronchitis, unspecified; E78.5 Hyperlipidemia, unspecified
CPT/HCPCS: 36415; 80053; 80061; 83036; 84443; 85025